=== PATIENT | male | born 1955 | race African-American/Black ===

== ENCOUNTER 2017-04-14 15:05 | Inpatient (IN) | payer MEDICARE ==
[~2017-04-14] VITALS: Ht 180.3 cm; Wt 87.5 kg
[2017-04-14] VITALS (37 sets, daily range): BP systolic 74–150; BP diastolic 40–91
--- NOTE | ~2017-04-14 | EC ---
PATIENT:ROSAMARIA HAGER DATE OF SERVICE: 04/14/17 SEX: M MEDICAL RECORD: [id number] DATE OF : [birth year] LOCATION:[facility] AGE OF PATIENT: 62 ADMISSION DATE: 04/14/17 REFERRING PHYSICIAN: INTERPRETING PHYSICIAN: CESAR DOLAN MD ECHOCARDIOGRAM REPORT ECHO CHARGES 4 ECHO COMPLETE CLINICAL DIAGNOSIS: L MCA HTN/CAD/DM HX OF CABG ECHOCARDIOGRAPHIC MEASUREMENTS (adult normal given) AC root (d.<3.7cm) 3.6 cm LV Septum d (<1.2 cm> 0.80 cm Valve Excursion 1.6 cm LV Septum (systole) 0.90 cm Left Atria (s.<4.0cm> 3.9 cm LVPW d(<1.2cm) 1.2 cm RV (d.<2.3cm) 3.3 cm LVPW (sytole) 1.6 cm LV diastole(<5.6CM) 6.4 cm MV E-F(>70mm/sec) cm LV systole 4.8 cm LVOT Diameter 1.5 cm MV exc.(>10mm) 1.6 cm Est.ejection fraction (50-75%) % Pericardial Effusion N DOPPLER: LVIT cm/sec A 59.0 cm/sec E 84.0 cm/sec LA cm/sec RVSP 48 mmHg LVOT 112 cm/sec AOP1/2T m/s Asc. Ao 113 cm/sec RVOT 89 cm/sec RA cm/sec PA 100 cm/sec AV Gradient Peak 5.09 mmHg AV Mean 302 mmHg AV Area 1.8 cm MV Gradient Peak 4.59 mmHg MV Mean 1.45 mmHg MV Area cm COMMENTS: Verifier Operator: 2 MARTIN ACKERMAN Talent Agent: 1 Dr. Dolan TAPE# PACS DATE OF SERVICE: 04/16/2017 Echocardiogram FINDINGS: 1. Left ventricular chamber size is mildly dilated. Left ventricular systolic function is mildly reduced, overall ejection fraction of 35% to 40%. 2. Left atrium, right atrium, and right ventricular chamber sizes are within normal limits. 3. Valvular structures have normal structure and motion. ECHOCARDIOGRAM REPORT [id number] ROSAMARIA HAGER 4. Doppler interrogation reveals mild mitral regurgitation, mild tricuspid regurgitation, no other valvular insufficiency or stenosis. Pulmonary systolic pressure is mildly elevated estimated at 48 mmHg. 5. No evidence of pericardial effusion or left ventricular thrombus. TRANSINT:[id number] Voice Confirmation ID: [id number] DOCUMENT ID: [id number] CESAR DOLAN MD CC: [id number] DICTATION DATE: 04/16/17 112 RETURNED GOODS REPAIRER: 04/16/[address] [facility] [address] [place] [address]
--- NOTE | ~2017-04-14 | OP ---
PATIENT NAME: ROSAMARIA HAGER MEDICAL RECORD: [id number] :51 LOCATION:D.M2 D.2138 ADMISSION DATE:04/14/17 SURGEON: CESAR VELAZQUEZ MD DATE OF OPERATION: 04/18/2017 PROCEDURES: 1. Left heart catheterization. 2. Selective coronary angiography. 3. Left ventriculogram. INDICATION: Elevated troponin. PROCEDURE IN DETAIL: After informed consent was obtained and after a detailed explanation of risks, benefits as well as alternative therapies, the patient elected to proceed with angiogram. The right femoral area was prepped and draped in normal sterile fashion. The right femoral artery was cannulated via modified Seldinger technique with placement of 6-[place]izen [place] sheath. All catheters exchanged through this sheath. FINDINGS: The left ventriculogram was performed in standard 30-degree TODD view, reveals severe global hypokinesis throughout all segments. Overall ejection fraction 15% to 20%. SELECTIVE CORONARY ANGIOGRAPHY: 1. Left main showed no significant angiographic disease. 2. Left anterior descending is totally occluded. 3. VARGAS to the LAD is widely patent. 4. Left circumflex has 80% to 90% stenosis in the mid vessel. 5. Vein graft to the OM1 and OM2 in a skipped fashion is widely patent. The circumflex is dominant. 6. Right coronary is small, nondominant diffusely diseased, and nongrafted. OVERALL IMPRESSION: Severe cardiomyopathy, wide patency of all grafts. Continue medical management of the cardiomyopathy. TRANSINT:[id number] Voice Confirmation ID: [id number] DOCUMENT ID: [id number] CESAR VELAZQUEZ MD CC: [id number] DICTATION DATE: 04/18/17 1054 PLANT ASSOCIATE: 04/18/17 1124 ADM IN [facility] [address] [place] [id number]
--- NOTE | ~2017-04-14 | HEMODYNAMI ---
PATIENT:ROSAMARIA HAGER MEDICAL RECORD: [id number] : 51 LOCATION:D. D.2138 ADMISSION DATE: 04/14/17 Generatedon:04/18/201710:54 Patient name: ROSAMARIA HAGER Patient #: [id number] SSN: DO B: 1955 Date of study: 04/18/2017 Page: Of Hemodynamic Procedure Report Patient Data Patient Demographics Procedure consent was obtained First Name: ROSAMARIA Gender: Male Last Name: ALLEY : 1955 Middle Initial: W Age: 62 year(s) Patient #: [id number] Race: Black Additional ID: [id number] Contact details [address]: [address] [place] [address] State: [place] City: [place] Zip code: [address] Admission Admission Data Admission Date: 04/14/2017 Admission Time: 15:05 Room #: D.2138 Weight (lbs.): 150 Weight (kg.): 68.04 Procedure Procedure Types Cath Procedure Diagnostic Procedure LHC LHC w/Coronaries w/Grafts Miscellaneous Procedures Moderate Sedation up to 15 minutes Procedure Description Procedure Date Procedure Date: 04/18/2017 Procedure Start Time: 10:43 Procedure End Time: 10:52 Procedure Staff Name Function Kasey Mckenzie RT Scrub Baltazar Dolan MD Performing Physician Camila Sultana RN Nurse Larissa Car RT Monitor Procedure Data Cath Procedure Fluoroscopy Diagnostic fluoroscopy Total fluoroscopy Time: 2.4 time: 2.4 min min Diagnostic fluoroscopy Total fluoroscopy dose: 435 dose: 435 mGy mGy Contrast Material Contrast Material Type Amount (ml) Isovue 300 80 Entry Location Entry Primary Successful Side Size Upsize Upsize Entry Closure Succes sful Closure Location (Fr) 1 (Fr) 2 (Fr) Remarks Device Remarks Femoral Right 5 Fr Exoseal artery Estimated blood loss: 10 ml Diagnostic catheters Device Type Used For End Catheter Placement Cordis 5Fr Pigtail Procedure Catheter (MP) Cordis 5Fr JL 4.0 Procedure Catheter (MP) Cordis 5Fr 3DRC Catheter Procedure (MP) Diagnostic Infinity 5Fr Procedure AR 2 MOD catheter Procedure Complications No complications Procedure Medications Medication Administration Route Dosage Oxygen NC 2 l/min Heparin Flush Bag added to field 2 bags (1000units/500ml NS) Lidocaine 2% added to field 20 Fentanyl I.V. 50 mcg Versed I.V. 1 mg Fentanyl I.V. 25 mcg Versed I.V. 0.5 mg Hemodynamics Rest Heart Rate: 106 (bpm) Snapshots Pre Cath Intra NCS Post Cath Vital Signs Time Heart Resp SPO2 NIBP Rhythm Pain Sedation Rate (ipm) (%) (mmHg) Status Level (bpm) 10:11:11 106 24 103/80(91) NSR 0 (11) 10(A) , No pain 10:15:11 101 22 95 102/79(93) NSR 0 (11) 10(A) , No pain 10:19:10 99 23 100 101/79(92) NSR 0 (11) 10(A) , No pain 10:23:10 95 24 99 103/77(92) NSR 0 (11) 10(A) , No pain 10:27:10 100 28 99 103/81(90) NSR 0 (11) 10(A) , No pain 10:31:09 98 25 99 102/80(89) NSR 0 (11) 10(A) , No pain 10:35:07 96 24 99 103/81(91) NSR 0 (11) 10(A) , No pain 10:39:07 100 26 98 100/81(89) NSR 0 (11) 9(A) , No pain 10:43:06 93 20 98 97/78(85) NSR 0 (11) 9(A) , No pain 10:47:06 92 20 97 97/74(81) NSR 0 (11) 9(A) , No pain 10:51:06 90 17 98 100/72(85) NSR 0 (11) 9(A) , No pain Medications Time Medication Route Dose Verified Delivered Reason Notes Effec tiveness by by 10:11:54 Oxygen NC 2 Camila Camila used for l/min Sultana Sultana architectural engineer RN 10:12:02 Heparin Flush added 2 Camila Camila used for Bag to bags Sultana Sultana procedure (1000units/500ml field RN RN NS) 10:12:11 Lidocaine 2% added 20ml Camila Camila used for to vial Sultana Sultana procedure field RN RN 10:38:59 Fentanyl I.V. 50 Camila Camila for mcg Sultana Sultana sedation RN RN 10:39:04 Versed I.V. 1 mg Camila Camila for Sultana Sultana sedation RN RN 10:42:55 Fentanyl I.V. 25 Camila Camila for mcg Sultana Sultana sedation RN RN 10:42:59 Versed I.V. 0.5 Camila Camila for mg Sultana Sultana sedation RN public works technician Log Time Note 9:59:31 Camila Sultana RN sent for patient. Start room use. 9:59:32 Time tracking: Regular hours 9:59:35 Plan of Care:Hemodynamics will remain stable., Cardiac rhythm will remain stable., Comfort level will be maintained., Respiratory function will remain adequate., Patient/ family verbilizes understanding of procedure., Procedure tolerated without complication., Recovers from procedure without complications.. 10:02:53 Patient received from PCU to CCL 2 Alert and oriented. Tansferred to table in Supine position. 10:02:54 Correct patient and procedure confirmed by team. 10:02:54 Warm blankets applied, and jessica hugger turned on for patient comfort. 10:02:56 Signed procedure consent form obtained from patient. 10:02:57 ECG and BP/O2 sat monitors applied to patient. 10:02:58 Full Disclosure recording started 10:10:13 Vital chart was started 10:10:57 Baseline sample Acquired. 10:11:54 Oxygen 2 l/min NC was administered by Camila Sultana RN; used for procedure; 10:12:02 Heparin Flush Bag (1000units/500ml NS) 2 bags added to field was administered by Camila Sultana RN; used for procedure; 10:12:11 Lidocaine 2% 20ml vial added to field was administered by Camila Sultana RN; used for procedure; 10:12:27 H&P Date Dictated: 04/15/2017 Within 30 days and on chart.. 10:12:29 Pre-procedure instructions explained to patient. 10:12:32 Family unavailable. 10:12:35 Patient NPO since Midnight. 10:13:13 Is the patient allergic to Iodine/contrast media? Yes. 10:13:16 Was the patient premedicated? Yes 10:13:26 Is patient on blood thinner?Yes 10:13:29 ACC The patient was administered the following blood thiners within the last 24 hours: ACCPlavix 10:13:31 Patient diabetic? Yes. 10:13:32 If diabetic: On Metformin? Yes 10:13:37 If on Metformin: Last Dose? 04/16/2017 10:13:43 Snore? Unknown 10:13:47 Sleep apnea? Unknown 10:13:59 Deviated septum? No 10:14:05 Dentures? No ? 10:14:09 Patient pain scale 0/10 ?. 10:14:18 IV patent on arrival in left hand with 0.9% NaCl at [facility]. 10:14:28 Lab results completed and on chart. 10:14:33 Right groin area was prepped with chlora-prep and draped in sterile fashion 10:14:34 Alarms reviewed by R. N. 10:14:35 Sharps counted by scrub and verified by R.N. 10:14:41 Physician paged 10:23:15 Zero performed for pressure channel P1 10:37:35 Physician arrived 10:37:47 --------ALL STOP TIME OUT------ 10:37:48 Final Timeout: patient, procedure, and site verified with staff and physician. All members of the team are in agreement. 10:37:52 Right groin site verified by team. 10:37:56 Physical assessment completed. ASA score P 2 - A patient with mild systemic disease as per Baltazar Dolan MD. 10:38:00 Sedation plan: IV Moderate Sedation Versed, Fentanyl 10:38:42 Use device set Radial Dx 10:38:43 Acist Syringe opened to sterile field. 10:38:44 Medline Cath Pack opened to sterile field. 10:38:45 Bag Decanter opened to sterile field. 10:38:54 St Bud 260cm J .035 wire opened to sterile field. 10:38:55 Acist Hand Control opened to sterile field. 10:38:56 Tegaderm 4 x 4 opened to sterile field. 10:38:56 Acist Manifold opened to sterile field. 10:38:59 Fentanyl 50 mcg I.V. was administered by Camila Sultana RN; for sedation; 10:39:03 Use device set Multipack Set 10:39:04 Versed 1 mg I.V. was administered by Camila Sultana RN; for sedation; 10:39:07 Diagnostic Infinity 5Fr Multipack catheter opened to sterile field. 10:39:16 Terumo 5Fr [place] Sheath opened to sterile field. 10:42:55 Fentanyl 25 mcg I.V. was administered by Camila Sultana RN; for sedation; 10:42:58 Procedure started. 10:42:59 Versed 0.5 mg I.V. was administered by Camila Sultana RN; for sedation; 10:43:11 Local anesthetic to right femoral artery with Lidocaine 2% by Baltazar Dolan MD.INITIAL ACCESS ONLY 10:43:20 A 5 Fr sheath was inserted into the Right Femoral artery 10:44:12 A Cordis 5Fr Pigtail Catheter (MP) was advanced over the wire and used for Procedure. 10:44:18 LV angiography performed. 10:44:22 LV gram done using TODD 10:44:37 EF : 15 % 10:44:41 Catheter removed. 10:45:10 A Cordis 5Fr JL 4.0 Catheter (MP) was advanced over the wire and used for Procedure. 10:45:14 LCA angiography performed. 10:45:53 Catheter removed. 10:46:04 A Cordis 5Fr 3DRC Catheter (MP) was advanced over the wire and used for Procedure. 10:46:43 VARGAS to LAD angiography performed. 10:46:53 RCA angiography performed. 10:47:06 Catheter removed. 10:47:45 A Diagnostic Infinity 5Fr AR 2 MOD catheter was advanced over the wire and used for Procedure. 10:47:54 SVG to Circ angiography performed. 10:49:13 Catheter removed. 10:49:19 Cordis 5Fr Exoseal opened to sterile field. 10:49:43 Sheath removed intact; hemostasis achieved with Exoseal to the Right Femoral artery. 10:49:58 Procedure ended.(Physican Out) 10:50:09 Fluoroscopy time 02.40 minutes. 10:50:15 Fluoroscopy dose: 435 mGy 10:50:15 Flurop Dose total: 435 10:50:19 Contrast amount:Isovue 300 80ml. 10:50:21 Sharps counted by scrub and verified by R.N. 10:50:22 Insertion/operative site no bleeding no hematoma. 10:50:35 Post-op/insertion site Right Femoral artery dressed using a 4 x 4 and Tegaderm. 10:50:39 Post right femoral artery:stable 10:50:43 Post Procedure Pulses reassessed and unchanged 10:50:49 Post-procedure physical assessment completed. ASA score P 3 - A patient with severe systemic disease as per Baltazar Dolan MD. 10:50:53 Estimated blood loss: 10 ml 10:50:56 Post procedure instruction explained to patient.Patient verbalizes understanding. 10:51:10 Procedure type changed to Cath procedure, Diagnostic procedure, LHC, LHC w/Coronaries w/Grafts, Miscellaneous Procedures, Moderate Sedation up to 15 minutes 10:51:11 Procedure and supply charges have been captured, reviewed, submitted and are correct. 10:51:52 Procedure Complication : No complications 10:51:55 Vital chart was stopped 10:51:56 See physician's report for complete and final results. 10:52:00 Report given to [facility]. 10:52:03 Patient transfered to [facility] with Bed. 10:52:06 Full Disclosure recording stopped 10:52:06 Procedure ended. 10:52:11 End room use (Document Last) 10:54:18 Patient Weight : 68.04 kg Device Usage Item Name Manufacture Quantity Catalog Hospital Part Current Minimal Lo t# / Number Charge Number Stock Stock Serial# Code Acist Acist 1 29799 [id number] 663552 800190 20 Syringe [employer] Inc Medline Cardinal 1 [id number] 853064 87924 259217 5 Cath Pack Health Bag Microtek 1 2001S 076496 19936 765095 [address] Bud 1 194195 096555 502895 836090 30 260cm J .035 wire Acist Hand Acist 1 67608 369420 623627 495242 5 Control Medical Systems Inc Acist Acist 1 30238 040443 173127 920830 5 Manifold Medical Systems Inc Tegaderm 4 3M 1 1626W 746603 978555 209421 5 x 4 Diagnostic Cardinal 1 [id number] 656804 94581 550318 30 Frazr Health 5Fr Multipack catheter Terumo 5Fr Terumo 1 [id number] 584772 387095 573567 40 [place] Sheath Cordis 5Fr Cardinal 1 568424 5 Pigtail Health Catheter (MP) Cordis 5Fr Cardinal 1 422578 5 JL 4.0 Health Catheter (MP) Cordis 5Fr Cardinal 1 568297 5 3DRC Health Catheter (MP) Diagnostic Cardinal 1 [id number] 819945 934642 056066 20 Infinity Health 5Fr AR 2 MOD catheter Cordis 5Fr Cardinal 1 EX500 063633 072760 501839 10 [facility] Angstro Signature Audit [place] Stage Time Signature Unsigned Intra-Procedure 04/18/2017 Larissa Car 10:54:54 AM RT(R) Signatures Monitor : Larissa Car Signature : RT Date : Time : [place] [address] [place] [address]
--- NOTE | ~2017-04-14 | CN ---
PATIENT NAME:ROSAMRAIA HAGER MEDICAL RECORD: [id number] : 51 LOCATION:SADAF.2307 ADMIT DATE: 04/14/17 ACCOUNT: [id number] CONSULTING PHYSICIAN: CESAR VELAZQUEZ MD REFERRING PHYSICIAN: ARIA STARKS MD DATE OF CONSULTATION: 04/15/2017 Cardiology Consult DIAGNOSES: 1. Non-Q-wave myocardial infarction. 2. Renal failure, acute. 3. Anemia. HISTORY OF PRESENT ILLNESS: This gentleman presents with acute renal failure, creatinine 11, potassium greater than 6. He underwent emergent dialysis. His troponin is positive, it increased to 5.0. He denies any chest pain or chest discomfort. He has no gross changes on his EKG. No cardiac history, although the patient is a poor historian and his systolic blood pressure is in the 90s, heart rate is 110-114. PHYSICAL EXAMINATION: GENERAL APPEARANCE: Well-nourished, well-developed, appears stated age. Level of distress, comfortable. PSYCHIATRIC: Mental status, alert, normal affect. Orientation, oriented to time, place and person. EYES: Lids and conjunctiva, noninjected. No discharge, no pallor. ENT: Lips, teeth, gums, normal dentition. Oropharynx, no cyanosis, no pallor. NECK: Carotid arteries, bilateral normal upstroke, no bruits, no thrills. JUGULAR VEINS: No jugular venous pressure or distention. CERVICAL LYMPH NODES: Nontender, nonenlarged. THYROID: Not enlarged. Nontender. No nodules. LUNGS: Respiratory effort, unlabored. CHEST: Normal curvature. No thoracic deformity. No chest wall tenderness. Percussion, resonant. Auscultation, clear. No wheezes, no rales, no rhonchi. CARDIOVASCULAR: Precordial exam, nondisplaced. No heaves or pericardial thrills. Rate and rhythm, regular. Heart sounds, normal S1, normal S2. No S3, no gallop, no rub. Systolic murmur, not heard. Diastolic murmur, not heard. EXTREMITIES: No cyanosis, no edema. Peripheral pulses, full and equal in all extremities, except as noted. No bruits appreciated. ABDOMEN: Soft, nondistended. Normal aorta. No bruit. Nontender. No masses. Liver, nontender, no hepatomegaly. Spleen, nontender, no splenomegaly. MUSCULOSKELETAL: No joint tenderness. No joint swelling. No erythema. NEUROLOGICAL: Normal gait, normal strength, normal tone. SKIN: Warm and dry. OVERALL IMPRESSION: Non-Q-wave myocardial infarction. We will start him on aspirin. We will try a very low dose beta geovanni to lower the heart rate. With the renal failure, would not proceed with coronary angiography at this time. Hopefully, medical management will stabilize him. Possible coronary angiography in the future if renal status stabilizes. TRANSINT:[id number] Voice Confirmation ID: [id number] DOCUMENT ID: [id number] CONSULT REPORT [id number] ROSAMARIA HAGER JEFFREY MD CC: [id number] DICTATION DATE: 04/15/17 1103 K 12 SCHOOL PRINCIPAL: 04/15/17 1456 ADM IN [place] [id number] [place] [id number]
--- NOTE | 2017-04-14 15:00 | NUR ---
REC'D TO ROOM 2307 VIA STRETCHER DIRECT ADMIT FROM [facility]. TRANSFERRED TO ICU BED BY [employer]. CONNECTED TO BEDSIDE MONITOR AND VS OBTAINED. NS INFUSING TO R IJ TLC AT KVO AND LEVOPHED INFUSING AT 15MCG/MIN. SEE FLOWSHEET FOR COMPLETE ASSESSMENT.
[~2017-04-14 15:05] MED LIST: ALDACTONE25 MG; ALDACTONE25 MG PO; CILOSTAZOL100 MG; CILOSTAZOL100 MG PO; COREG12.5 MG PO; COREG25 MG; COREG25 MG PO; FUROSEMIDE40 MG PO; GLIMEPIRIDE2 MG; GLIMEPIRIDE2 MG PO; K-TAB10 MEQ; K-TAB10 MEQ PO; MAG-OXIDE400 MG; MAG-OXIDE400 MG PO; POTASSIUM CHLORIDE E; VASOTEC10 MG; VASOTEC5 MG PO; ZOCOR40 MG; ZOCOR40 MG PO; ZYLOPRIM100 MG; ZYLOPRIM100 MG PO
[2017-04-14 15:42] LABS: BASOPHILS 0 % (0-2); EOSINOPHILS 0.3 % (0-7); HEMATOCRIT 30.4 % (42.0-54.0); HEMOGLOBIN 10.2 g/dL (13.5-17.5); IMMATURE GRANULOCYTES 0.1 % (0-5); LYMPHOCYTES 9.9 % (15-50); MCH 27.4 pg (26.0-34.0); MCHC 33.6 g/dL (31.0-37.0); MCV 81.7 fL (80.0-100.0); MEAN PLATELET VOLUME 9.6 fL (7.4-10.4); MONOCYTES 4.7 % (2-11); RBC 3.72 10x6/uL (4.20-6.10); RDW 14.9 % (11.5-14.5); WBC 7.3 10x3/uL (4.8-10.8)
[2017-04-14 15:47] LABS: PLATELET COUNT 194 10x3/uL (130-400)
[2017-04-14 15:49] LABS: INR 1.24 (0.85-1.17); PROTIME 15.5 SECONDS (11.6-15.0)
[2017-04-14 15:55] LABS: ALBUMIN 2.9 g/dL (3.4-5.0); ANION GAP 22.1 mmol/L (8-16); BILIRUBIN - DIRECT 0.08 mg/dL (0.00-0.30); BILIRUBIN - INDIRECT 0.18 mg/dL (0.00-1.00); BILIRUBIN - TOTAL 0.26 mg/dL (0.2-1.3); CALCIUM 8.3 mg/dL (8.5-10.1); CARBON DIOXIDE 13.3 mmol/L (21.0-32.0); CREATININE - SERUM 10.5 mg/dL (0.6-1.3); PROTEIN - SERUM 7.4 g/dL (6.4-8.2)
[2017-04-14 15:57] LABS: POTASSIUM - SERUM 7.4 mmol/L (3.5-5.1)
--- NOTE | 2017-04-14 17:30 | NUR ---
HANDOFF REPORT RECEIVED FROM COURTNEY FITZPATRICK. PT UNDERGOING HD AT THIS TIME PER DIALYSIS NURSE. WILL MONITOR CLOSELY DURING THERAPY
[2017-04-14 17:49] LABS: COMPLEMENT C4 27.8 mg/dL (17.4-52.2)
[2017-04-14 17:56] LABS: AMYLASE - SERUM 208 U/L (25-115); LIPASE 676 U/L (73-393)
[2017-04-14 18:33] LABS: ERYTHROCYTE SEDIMENTATION RATE 72 mm/hr (0-20)
--- NOTE | 2017-04-14 19:05 | NUR ---
SHIFT ASSESSMENT COMPLETE, SEE FLOWSHEET FOR DETIALS. PATIENT AWAKE AND ALERT TALKING WITH FAMILY AT BEDSIDE. CURRENTLY HAVING EMERGENCY DAILYSIS. VSS, IS HAVING PAC'S AND PVC'S. PATIENT HAS NOT HAD TO URINATE, HE STATES HE HASN'T IN DAYS. WILL MONITOR.
[2017-04-14 19:41] LABS: CKMB 5.4 U/L (0.0-3.6); CREATINE KINASE 81 UL (21-232)
[2017-04-14 19:42] LABS: TROPONIN-I 0.317 ng/mL (0.000-0.060)
--- NOTE | 2017-04-14 20:15 | NUR ---
PATIENT HAD 30 SECOND LONG RUN OF SVT WITH A RATE OF 148, DR STARKS MADE AWARE OF THAT AND PATIENT STILL HAVING PVS'S AND PAC'S. CARDIAC ENZYMES WERE DRAWN. CONSULTING CARDIOLOGY PER DR STARKS.
--- NOTE | 2017-04-14 20:31 | NUR ---
CARDIOLGY CONSULTED AT THIS TIME.
--- NOTE | 2017-04-14 23:00 | NUR ---
REASSESSMENT COMPLETE, PATIENT NOW IN NSR WITH SINUS TACH ON MONITOR OF 122. NOW PRODUCING GOOD URINE OUTPUT. WEANING LEVOPHED DOWN, VSS.
[2017-04-14 23:04] LABS: ANION GAP 14.4 mmol/L (8-16); CREATININE - SERUM 3.7 mg/dL (0.6-1.3); POTASSIUM - SERUM 3.4 mmol/L (3.5-5.1)
[2017-04-14 23:25] LABS: CREATININE - URINE 15.5 mg/dL (30-125)
[2017-04-14 23:32] LABS: APPEARANCE CLEAR (CLEAR); BILIRUBIN NEGATIVE (NEGATIVE); COLOR YELLOW (YELLOW); GLUCOSE 100 mg/dL (NEGATIVE); KETONE SMALL mg/dL (NEGATIVE); LEUKOCYTE ESTERASE NEGATIVE (NEGATIVE); NITRITE NEGATIVE (NEGATIVE); PROTEIN NEGATIVE (NEGATIVE); SPECIFIC GRAVITY 1.005 (1.005-1.020); UROBILINOGEN NORMAL (NORMAL)
[2017-04-14 23:39] LABS: BACTERIA FEW /hpf (NONE SEEN); EPITHELIAL CELLS RARE /hpf (0-5); RED CELLS - URINE 0-5 /hpf (0-5); WHITE CELLS - URINE OCC /hpf (0-5)
[2017-04-15] VITALS (50 sets, daily range): BP systolic 82–150; BP diastolic 46–86; Ht 180.3 cm; Wt 87.5 kg
--- NOTE | 2017-04-15 01:00 | NUR ---
RESTING WITH EYES CLOSED. VSS.
--- NOTE | 2017-04-15 03:00 | NUR ---
REASSESSMENT COMPLETE, NO CHAGNES FROM PREVIOUS. SEE FLOWSHEET FOR DETIALS. PLACED ON BEDPAN AT THIS TIME. SMALL AMOUND OF YELLOW DIARRHEA.
--- NOTE | 2017-04-15 05:03 | NUR ---
RESTING WITH EYES CLOSED. RR EVEN AND NONLABORED. VSS. WILL MONITOR.
[2017-04-15 05:04] LABS: BASOPHILS 0 % (0-2); EOSINOPHILS 0.5 % (0-7); HEMATOCRIT 26.5 % (42.0-54.0); HEMOGLOBIN 9.2 g/dL (13.5-17.5); IMMATURE GRANULOCYTES 0.3 % (0-5); LYMPHOCYTES 9.4 % (15-50); MCH 27.6 pg (26.0-34.0); MCHC 34.7 g/dL (31.0-37.0); MCV 79.6 fL (80.0-100.0); MEAN PLATELET VOLUME 9.4 fL (7.4-10.4); MONOCYTES 9.5 % (2-11); NEUTROPHILS 80.3 % (40-80); PLATELET COUNT 163 10x3/uL (130-400); RBC 3.33 10x6/uL (4.20-6.10); RDW 14.6 % (11.5-14.5); WBC 6.3 10x3/uL (4.8-10.8)
[2017-04-15 05:17] LABS: ANION GAP 10.5 mmol/L (8-16); CALCIUM 7.7 mg/dL (8.5-10.1); CREATININE - SERUM 3.8 mg/dL (0.6-1.3); POTASSIUM - SERUM 3.5 mmol/L (3.5-5.1)
--- NOTE | 2017-04-15 07:30 | NUR ---
AROUSES EASILY. ASSESSMENT COMPLETE.
[2017-04-15 08:19] LABS: % SATURATION 29 % (15-55); IRON 49 ug/dl (35-150); TOTAL IRON BIND CAPACITY 166 ug/dl (260-445); UNSAT IRON BIND CAPACITY 117 ug/dl (150-375)
[2017-04-15 08:34] LABS: AMYLASE - SERUM 123 U/L (25-115); FERRITIN 527 ng/mL (3-244); LIPASE 314 U/L (73-393)
[2017-04-15 08:40] LABS: HEMOGLOBIN A1C 8.9 % (4.8-6.0)
[2017-04-15 08:44] LABS: CKMB 11.7 U/L (0.0-3.6); CREATINE KINASE 114 UL (21-232)
[2017-04-15 08:48] LABS: TROPONIN-I 4.991 ng/mL (0.000-0.060)
--- NOTE | 2017-04-15 09:00 | NUR ---
RESTING WITHOUT COMPLAINTS. NO ACUTE DISTRESS NOTED.
--- NOTE | 2017-04-15 11:00 | NUR ---
NO CHANGES IN ASSESSMENT.
--- NOTE | 2017-04-15 14:00 | NUR ---
RESTING WITH EYES CLOSED. NO DISTRESS NOTED.
[2017-04-15 14:42] LABS: CKMB 9.1 U/L (0.0-3.6); CREATINE KINASE 97 UL (21-232)
[2017-04-15 14:47] LABS: TROPONIN-I 3.789 ng/mL (0.000-0.060)
--- NOTE | 2017-04-15 16:00 | NUR ---
FAMILY @ BEDSIDE. CONDITION UPDATE GIVEN. NO DISTRESS NOTED.
--- NOTE | 2017-04-15 18:00 | NUR ---
NO ACUTE CHANGES IN CONDITION.
--- NOTE | 2017-04-15 19:00 | NUR ---
REPORT RECIVED, SHIFT ASSESSMENT COMPLETE, PLEASE SEE FLOW SHEETS FOR DETAILS. A&O X4. DENIES PAIN/NEEDS ATT. RR EVEN AND UNLABORED, CLEAR. S1S2 AUSCULTATED WITH ST NOTED ON MONITOR. PPP. FLOEWR. BS ACTIVE X4. BED LOW AND LOCKED, CALL LIGHT IN REACH. WILL CPOC.
[2017-04-15 20:30] LABS: CKMB 7.4 U/L (0.0-3.6); CREATINE KINASE 91 UL (21-232)
[2017-04-15 20:32] LABS: TROPONIN-I 3.168 ng/mL (0.000-0.060)
--- NOTE | 2017-04-15 21:00 | NUR ---
VISITORS AT BEDSIDE, DENIES PAIN/NEEDS ATT. BED LOW AND LOCKED, CALL LIGHT IN REACH. WILL CPOC.
--- NOTE | 2017-04-15 22:58 | NUR ---
REASSESSMENT COMPLETE, PLEASE SEE FLOW SHEETS FOR DETAILS. DENIES PAIN/NEEDS ATT. BED LOW AND LOCKED, CALL LIGHT IN REACH. VSS, WILL CPOC.
[2017-04-16] VITALS (20 sets, daily range): BP systolic 107–187; BP diastolic 63–111
--- NOTE | 2017-04-16 01:00 | NUR ---
PT GOT UP TO BEDSIDE CAMODE WITH NO ASSISTANCE NEEDED. FULL LINEN CHANGE PROVIDED. BATHED HIMSELF AND HAD SMALL SOFT BM. ALSO APPROX 200ML IN URINE OUT. RETURNED TO BED WITH NO HELP, BED LOW AND LOCKED, CALL LIGHT IN REACH. VSS ATT. WILL CPOC.
--- NOTE | 2017-04-16 02:59 | NUR ---
REASSESSMENT COMPLETE, PLEASE SEE FLOW SHEETS FOR DETAILS. DENIES PAIN/NEEDS ATT. VSS, BED LOW AND LOCKED, CALL LIGHT IN REACH. WILL CPOC.
[2017-04-16 04:28] LABS: BASOPHILS 0.1 % (0-2); EOSINOPHILS 1.9 % (0-7); HEMATOCRIT 26.7 % (42.0-54.0); IMMATURE GRANULOCYTES 0.3 % (0-5); LYMPHOCYTES 24.3 % (15-50); MCH 27.4 pg (26.0-34.0); MCHC 33.7 g/dL (31.0-37.0); MCV 81.4 fL (80.0-100.0); MEAN PLATELET VOLUME 8.9 fL (7.4-10.4); MONOCYTES 11.5 % (2-11); NEUTROPHILS 61.9 % (40-80); PLATELET COUNT 143 10x3/uL (130-400); RBC 3.28 10x6/uL (4.20-6.10); RDW 14.6 % (11.5-14.5); WBC 6.8 10x3/uL (4.8-10.8)
[2017-04-16 04:34] LABS: ANION GAP 11.4 mmol/L (8-16); CALCIUM 7.1 mg/dL (8.5-10.1); CARBON DIOXIDE 29.9 mmol/L (21.0-32.0); POTASSIUM - SERUM 3.3 mmol/L (3.5-5.1)
[2017-04-16 04:38] LABS: CREATININE - SERUM 1.7 mg/dL (0.6-1.3)
--- NOTE | 2017-04-16 05:00 | NUR ---
PT RESTING, VSS, BED LOW AND LOCKED, CALL LIGHT IN REACH. WILL CPOC.
--- NOTE | 2017-04-16 11:08 | NUR ---
TRIALYSIS CATH PULLED RIGHT NECK. PRESSURE HELD NO SWELLING OR BLEEDING FROM SITE. DRESSING APPLIED. PATIENT TOLERATED WELL.
--- NOTE | 2017-04-16 16:33 | NUR ---
IV LEAKING, NO SWELLING OR REDNESS. RESTARTED IN LEFT FOREARM WITH 22 GAUGE X 2 ATTEMPTES. PATIENT TOLERATED WELL. INFUSING WITH D51/2NS WITH 20 MEQ KCL AT 75 ML HOUR.
--- NOTE | 2017-04-16 19:00 | NUR ---
REPORT RECEIVED. SHIFT ASSESSMENT COMPLETED PER FLOW SHEET. PT LAYING IN BED, AWAKE AND ALERT. S1S2 PRESENT. PERIPHERAL PULSES PALP. BS ACTIVE X4. NO PROBLEMS URINATING OR VOIDING. ABLE TO FOLLOW COMMANDS WHEN ASKED TO MOVE EXTREMITIES. ABLE TO TURN INDEPENDENTLY. L FOREARM PIV INFUSING D5-1/2NS+20 KCL AT 75 MLS/HR. SEE FLOW SHEEET FOR COMPLETE ASSESSMENT. DENIES NEEDS AT THIS TIME. CALL LIGHT WITHIN REACH. BED IN LOWEST POSITION. WILL CONTINUE TO MONITOR.
--- NOTE | 2017-04-16 20:53 | NUR ---
PT LAYING IN BED WATCHING TV. MED ADMINISTERED PER EMAR. DENIES NEEDS AT THIS TIME. WILL CONTINUE TO MONITOR. CALL LIGHT WITHIN REACH.
--- NOTE | 2017-04-16 21:30 | NUR ---
PT TRANSFERED TO MED 2. REPORT GIVEN TO RN.
--- NOTE | 2017-04-16 21:47 | NUR ---
RECEIVED FROM ICU, BED IS LOW, SRX2, TELEMTRY PLACED, IV-LFA-D5 08/15 20K @ 75, PT DENIES ANY NEEDS, CALL LIGHT IN REACH, WILL CONTINUE TO MONITOR
[2017-04-17] VITALS: BP 125/83
--- NOTE | 2017-04-17 00:08 | NUR ---
CALL LIGHT IN REACH. WILL CONTINUE WITH PLAN OF CARE.
[2017-04-17 04:00] VITALS: BP 102/62
--- NOTE | 2017-04-17 04:09 | NUR ---
PT SLEEPING, BED IS LOW, SRX2, CALL LIGHT IN REACH, WILL CONTINUE PLAN OF CARE
[2017-04-17 06:32] LABS: ANION GAP 12.1 mmol/L (8-16); CARBON DIOXIDE 27.3 mmol/L (21.0-32.0); CREATININE - SERUM 1.4 mg/dL (0.6-1.3); POTASSIUM - SERUM 3.4 mmol/L (3.5-5.1)
[2017-04-17 06:44] LABS: CALCIUM 6.9 mg/dL (8.5-10.1)
[2017-04-17 07:14] LABS: BASOPHILS 0.2 % (0-2); EOSINOPHILS 3.2 % (0-7); HEMATOCRIT 27.4 % (42.0-54.0); HEMOGLOBIN 9.2 g/dL (13.5-17.5); IMMATURE GRANULOCYTES 0.3 % (0-5); LYMPHOCYTES 28.2 % (15-50); MCH 27.6 pg (26.0-34.0); MCHC 33.6 g/dL (31.0-37.0); MCV 82.3 fL (80.0-100.0); MEAN PLATELET VOLUME 9.6 fL (7.4-10.4); NEUTROPHILS 58.1 % (40-80); PLATELET COUNT 147 10x3/uL (130-400); RBC 3.33 10x6/uL (4.20-6.10); RDW 14.7 % (11.5-14.5); WBC 6.2 10x3/uL (4.8-10.8)
--- NOTE | 2017-04-17 07:25 | NUR ---
ASSESSMENT COMPLETED. TELEMERTY SHOWS SR. LEFT FA SL WITH D5 1/2 WITH KCL 20 AT 75. TELEMERTY SHOWS SR. PT IS UP AB LUIZ. DENIES ANY NEEDS. CALL LIGHT IN REACH WITH SR UP
--- NOTE | 2017-04-17 10:07 | NUR ---
AM ROUNDING DONE WITH PATIENT RESTING WITH EYES CLOSED LAYING ON RIGHT SIDE, HOB UP AT 20 DEGREES. RESP ARE EVEN AND NON LABORED. WILL CONTINUE TO MONITOR.
[2017-04-17 10:34] VITALS: BP 102/59
[2017-04-17 12:00] VITALS: BP 108/74
[2017-04-17 16:34] VITALS: BP 104/71
--- NOTE | 2017-04-17 18:36 | NUR ---
LYING QUIETLY. DENIES ANY NEEDS.TELEMERTY SHOWS SR. VISITORS AT BEDSIDE. NO CHANGES THIS 12 HOURS
[2017-04-17 19:00] VITALS: BP 113/68
--- NOTE | 2017-04-17 19:30 | NUR ---
RECEIVED REPORT, WILL ASSUME CARE OF PT, PT SITTING ON SIDE OD BED VISITING WITH DAUGHTER, DENIES ANY NEEDS,EXPLAINED WILL BE NPO AFTER MIDNIGHT PER ORDER, FOR CATH IN AM, BED IS LOW, SRX2, CALL LIGHT IN REACH, WILL CONTINUE PLAN OF CARE
[2017-04-18] VITALS: BP 102/70
--- NOTE | 2017-04-18 00:10 | NUR ---
CLINICAL APPEALS REVIEWER AT BED SIDE TO OBTAIN VITALS.
--- NOTE | 2017-04-18 01:23 | NUR ---
PT SLEEPING, BED IS LOW, SRX2, CALL LIGHT IN REACH, WILL CONTINUE PLAN OF CARE
--- NOTE | 2017-04-18 03:04 | NUR ---
PT RESTING IN BED WITH NO DISTRESS. RESPS EVEN/NONLABORED. MONITOR AND CPOC. CALL LIGHT IN REACH. BED LOW.
--- NOTE | 2017-04-18 03:05 | NUR ---
PT RESTING IN BED WITH NO DISTRESS. RESPS EVEN/NONLABORED. MONITOR AND CPOC. CALL LIGHT IN REACH. BED LOW.
[2017-04-18 04:00] VITALS: BP 100/68
--- NOTE | 2017-04-18 07:00 | NUR ---
RECEIVED REPORT. ASSUMED CARE OF PATIENT. CALL LIGHT WITHIN REACH. RESP EVEN AND UNLABORED. RESTING IN BED WITH EYES OPEN. DENIES NEEDS AT THIS TIME. DENIES PAIN, CHEST PAIN OR SOB. NO DISTRESS.
[2017-04-18 08:23] VITALS: BP 101/67
[2017-04-18 09:08] LABS: ANTI-GLOMERULAR BASMENT MEMBRN 3 units (0-20)
--- NOTE | 2017-04-18 09:53 | NUR ---
PREOP MEDS ADMINISTERED AT THIS TIME FOR HEART CATH. NO DISTRESS. CALL LIGHT WITHIN REACH.
[2017-04-18 09:57] LABS: BASOPHILS 0 % (0-2); EOSINOPHILS 0.2 % (0-7); HEMATOCRIT 28.6 % (42.0-54.0); HEMOGLOBIN 9.6 g/dL (13.5-17.5); IMMATURE GRANULOCYTES 0.6 % (0-5); LYMPHOCYTES 24.6 % (15-50); MCH 27.5 pg (26.0-34.0); MCHC 33.6 g/dL (31.0-37.0); MCV 81.9 fL (80.0-100.0); MEAN PLATELET VOLUME 9.3 fL (7.4-10.4); MONOCYTES 8.6 % (2-11); PLATELET COUNT 149 10x3/uL (130-400); RBC 3.49 10x6/uL (4.20-6.10); RDW 14.7 % (11.5-14.5); WBC 6.5 10x3/uL (4.8-10.8)
--- NOTE | 2017-04-18 10:02 | NUR ---
PATIENT LEFT UNIT VIA BED AT THIS TIME FOR HEART CATH. NO DISTRESS UPON LEAVING UNIT.
[2017-04-18 10:10] LABS: CARBON DIOXIDE 24.7 mmol/L (21.0-32.0); CREATININE - SERUM 1.5 mg/dL (0.6-1.3)
[2017-04-18 10:11] LABS: ANION GAP 14.4 mmol/L (8-16); POTASSIUM - SERUM 4.1 mmol/L (3.5-5.1)
[2017-04-18 10:12] LABS: CALCIUM 6.5 mg/dL (8.5-10.1)
[2017-04-18 11:11] LABS: FOLATE (FOLIC ACID) - SERUM 10.4 ng/mL (>3.0)
--- NOTE | 2017-04-18 11:16 | NUR ---
RECEIVED PATIENT BACK FROM [facility]ODUCTION ASSOCI[facility] AT THIS TIME. BP 100/65. PERIPHERAL PULSES PATENT. RIGHT GROIN FREE FROM S/S HEMATOMA, DRESSING CLEAN, DRY, AND INTACT. NO DISTRESS. PATIENT IS CONVERSING ON HIS CELLPHONE AT THIS TIME. IV FLUIDS INFUSING ORDERED. NO DISTRESS. CALL LIGHT WITHIN REACH. TELEMETRY REAPPLIED.
--- NOTE | 2017-04-18 11:22 | NUR ---
EFFIE WITH [facility] IN PHARMACY, STILL AWAITING FOR [facility] TO BE BROUGHT TO UNIT.
--- NOTE | 2017-04-18 12:06 | NUR ---
[facility] CONTINUES TO BE UNAVAILABLE FROM PHARMACY.
[2017-04-18 12:11] LABS: ANA REFLEX - DIRECT Negative (Negative)
--- NOTE | 2017-04-18 12:58 | NUR ---
RIGHT GROIN WITHOUT S/S HEMATOMA, DRESSING REMAINS CLEAN, DRY AND INTACT. PERIPHERAL PULSES PATENT. BP 98/56. IV INFUSING ORDERED. NO DISTRESS.
--- NOTE | 2017-04-18 14:22 | NUR ---
Nutrition Follow Up: Pt reported that his appetite is improving. He said that he felt constipated before but feels this has resolved. RD discussed benefit of changing diet to diabetic to aid in glucose control. Pt was in agreement with this. Pt is eating 57% meal avg on a regular diet. Wt stable. +BM 04/16/17. Labs reviewed. Meds noted including Prednisone. Will change diet to diabetic. RD following.
[2017-04-18 16:10] VITALS: BP 107/69
[2017-04-18 16:11] LABS: SPE - A/G RATIO 0.8 (0.7-1.7); SPE - ALBUMIN 3.1 g/dL (2.9-4.4); SPE - ALPHA-1 GLOBULIN 0.3 g/dL (0.0-0.4); SPE - ALPHA-2 GLOBULIN 1.2 g/dL (0.4-1.0); SPE - BETA GLOBULIN 1.2 g/dL (0.7-1.3); SPE - GAMMA GLOBULIN 1.1 g/dL (0.4-1.8); SPE - M-SPIKE Not Observed g/dL (Not Observed); SPE - TOTAL PROTEIN 6.9 g/dL (6.0-8.5)
--- NOTE | 2017-04-18 18:24 | NUR ---
NO DISTRESS. RESTING WELL IN BED. DENIES NEEDS. CALL LIGHT WITHIN REACH.
[2017-04-18 19:00] VITALS: BP 106/65
--- NOTE | 2017-04-18 19:30 | NUR ---
RECEIVED REPORT, WILL ASSUME CARE OF PT, PT DENIES ANY NEEDS, BED IS LOW, SRX2, CALL LIGHT IN REACH, PT REFUSING SCD,WILL CONTINUE PLAN OF CARE
[2017-04-19] VITALS: BP 116/73
[2017-04-19 03:09] LABS: HEPATITIS C ANTIBODY 0.4 (0.0-0.9)
--- NOTE | 2017-04-19 04:01 | NUR ---
ASSESSMENT COMPLETE, SEE FLOWSHEET, PT SLEEPING, BED IS LOW, SRX2, CALL LIGHT IN REACH, WILL CONTINUE PLAN OF CARE
[2017-04-19 05:31] LABS: BASOPHILS 0 % (0-2); EOSINOPHILS 0.2 % (0-7); HEMOGLOBIN 9.3 g/dL (13.5-17.5); IMMATURE GRANULOCYTES 0.4 % (0-5); LYMPHOCYTES 22.6 % (15-50); MCH 27.4 pg (26.0-34.0); MCHC 33.2 g/dL (31.0-37.0); MCV 82.6 fL (80.0-100.0); MEAN PLATELET VOLUME 10.2 fL (7.4-10.4); MONOCYTES 7.2 % (2-11); NEUTROPHILS 69.6 % (40-80); PLATELET COUNT 160 10x3/uL (130-400); RBC 3.39 10x6/uL (4.20-6.10); RDW 14.7 % (11.5-14.5)
--- NOTE | 2017-04-19 05:36 | NUR ---
PT RESTING IN BED WITH NO DISTRESS. RESPS EVEN/NONLABORED. CALL LIGHT IN REACH. CPOC.
[2017-04-19 05:47] LABS: WBC 8.4 10x3/uL (4.8-10.8)
[2017-04-19 06:29] LABS: ANION GAP 15.3 mmol/L (8-16); CARBON DIOXIDE 24.9 mmol/L (21.0-32.0); CREATININE - SERUM 1.6 mg/dL (0.6-1.3); POTASSIUM - SERUM 4.2 mmol/L (3.5-5.1)
[2017-04-19 06:30] LABS: CALCIUM 6.9 mg/dL (8.5-10.1)
[2017-04-19 07:50] VITALS: BP 107/81
--- NOTE | 2017-04-19 08:05 | NUR ---
AM ROUNDS COMPLETED. INTRODUCED MYSELF TO PT PRIMARY RN FOR TODAYS SHIFT. SHIFT ASSESSMENT COMPLETED. PT SITTING UP ON EDGE OF BED EATING BREAKFAST. PT STATES HE SLEPT WELL AND IS FEELING BETTER AND HOPES TO BE DISCHARGED TODAY. PT DENIES ANY CURRENT PAIN OR NEEDS AT THIS TIME. CL IN REACH, BED IN LOWEST, SIDE RAILS X2. WILL CPOC.
[2017-04-19] MEDS ORDERED: COREG6.25 MG PO (09:54)
[2017-04-19] MEDS ORDERED: ASPIRIN81 MG PO (09:55)
--- NOTE | 2017-04-19 10:46 | NUR ---
Patient Name: ROSAMARIA HAGER Admission Status: Urgent Accout number: [id number] Admission Date: 04-14-2017 : 1955 Admission Diagnosis: Attending: ARIA STARKS Current LOS: 5 Anticipated DC Date: 04-19-2017 Planned Disposition: Home Primary Insurance: [facility] Discharge Planning Comments: * Is the patient Alert and Oriented? Yes 0 * How many steps to enter\exit or inside your home? 1 0 * PCP DR. SNYDER IN [place] 0 * Pharmacy [facility] IN [place] 0 * Preadmission Environment Home Alone 0 * ADLs Independent 0 * Equipment [facility] 0 * Other Equipment HOME OXYGEN ONLY PROVIDED BY [facility] 0 * List name and contact numbers for known caregivers / representatives who currently or will assist patient after discharge: CINDY HAGER, DTR, 0 * Community resources currently utilized None 0 * Please name any agencies selected above. NONE 0 * Additional services required to return to the preadmission environment? No 0 * Can the patient safely return to the preadmission environment? Yes 0 * Has this patient been hospitalized within the prior 30 days at any hospital? No 0 CM MET WITH PT IN ROOM TO DISCUSS DISCHARGE PLANNING AND NEEDS. PT REPORTS LIVING AT HOME INDEPENDENTLY AND ALONE. PT REPORTS HIS 11 YEAR OLD GRANDSON SPENDS WEEKENDS WITH PT AT HIS HOME. PT HAS HOME OXYGEN FROM [facility] AND A CANE. PT USES A CANE NEEDED. PT HAS NO OUTSIDE SERVICES ASSISTING IN THE HOME. CM DISCUSSED AVAILABILITY OF HOME HEALTH, REHAB SERVICES AND MEDICAL EQUIPMENT. PT DENIES DISCHARGE NEEDS, REPORTS HIS DAUGHTER IS ON THE WAY TO PICK HIM UP FOR DISCHARGE HOME TODAY. IMPORTANT MESSAGE FROM [employer] PROVIDED AND EXPLAINED Information Technology Associate: Bernard Lazaro
[2017-04-19 11:19] VITALS: BP 100/80
--- NOTE | 2017-04-19 11:23 | NUR ---
PT EXCITED TO BE DISCHARGED. DISCHARGE PAPERS BEING WORKED UP. PT CALLED HIS DAUGHTER FOR TRANSPORTATION. D/C PTS L.LUÍS PIV WITH CATHETER TIP FULLY INTACT. PT COLLECTING BELONGINGS AND AWAITING HIS PAPERS AND RIDE.
--- NOTE | 2017-04-19 12:17 | NUR ---
DAUGHTER HERE TO NURSE RESEARCHER PT. DISCHARGE PAPERS SIGNED AND PT VERBALIZED UNDERSTANDING. NO FURTHER NEEDS. PT READY TO LEAVE.
--- NOTE | 2017-04-19 13:37 | DS ---
PATIENT:ROSAMARIA HAGER :[birth year] MEDICAL RECORD: [id number] DISCHARGE SUMMARY ADMISSION DATE: 04/14/17 DISCHARGE DATE: 04/19/17 HOSPITAL COURSE: This is a 62-year-old gentleman that was admitted by Dr. Hickman with acute kidney injury and hyperkalemia. He required dialysis. Dr. Hickman had simplified his medications and had held his allopurinol and his Aldactone. Allopurinol can rarely cause renal insufficiency and of course Aldactone [id number] his potassium. Cardiology was consulted. He had a left heart catheter with no significant disease. His Coreg has been decreased to 6.25 mg b.i.d., Aspirin 81 a day. His calcium was borderline, probably due to his renal insufficiency and he is to take 1000 mg of Tums 3 times a day and will have followup and have his BMP and calcium checked as well. Continue Lasix, which is 40 mg p.r.n. edema, simvastatin 40 mg at night for his hyperlipidemia and resume his glimepiride, or Amaryl 2 mg one a day. He is stable on discharge. Vital signs are stable. His blood pressure is 102/62 with a heart rate 66-72. Normocephalic and atraumatic. Clear nares. Clear throat. No JVD or thyromegaly. Chest is regular rhythm, S1 and S2. His site where his Trialysis catheter was placed is stable with no sign of infection or bleeding. No lower extremity edema. Follow up with Dr. Carpenter. We will likely have him see our nurse practitioner in the [place] area as well. Continue with his cardiac low sodium diet and to return to the hospital for any problems. Stable on discharge. More than 30 minutes was spent with the dictation and writing out his discharge instructions. TRANSINT:[id number] Voice Confirmation ID: [id number] DOCUMENT ID: [id number] PUSHPA RECIO MD at 1337 CC: PUSHPA CARPENTER MD [id number] DICTATION DATE: 04/19/17 1007 GLASS FORMING ENGINEER: 04/19/17 1130 DIS IN 04/19/17 [id number] [place] [id number]
[2017-04-19 14:19] LABS: ANCA - ANTIMYELOPEROXIDASE <9.0 U/mL (0.0-9.0); ANCA - ANTIPROTEINASE 3 <3.5 U/mL (0.0-3.5); ANCA - ATYPICAL <1:20 titer (Neg:<1:20); ANCA - CYTOPLASMIC <1:20 titer (Neg:<1:20); ANCA - PERINUCLEAR <1:20 titer (Neg:<1:20)
[2017-04-19 15:21] LABS: UPE RAND - ALBUMIN 55.3 % (()); UPE RAND - ALPHA 1 GLOBULIN 3.5 % (()); UPE RAND - ALPHA 2 GLOBULIN 6.2 % (()); UPE RAND - BETA GLOBULIN 16.4 % (()); UPE RAND - GAMMA GLOBULIN 18.7 % (())
== END 2017-04-19 12:17 | disposition home or self-care (01) | DRG 280 ==
LOC: D.ICU 15:05 → D.M2 15:05
PROVIDERS: Internal Medicine Interventional Cardiology; ADMIT Internal Medicine Nephrology
PROC: 5A1D00Z (ICD-10-PCS; 2017-04-14)
PROC: B2151ZZ Fluoroscopy of Left Heart using Low Osmolar Contrast (ICD-10-PCS; 2017-04-18)
PROC: 4A023N7 Measurement of Cardiac Sampling and Pressure, Left Heart, Percutaneous Approach (ICD-10-PCS; 2017-04-18)
PROC: B2111ZZ Fluoroscopy of Multiple Coronary Arteries using Low Osmolar Contrast (ICD-10-PCS; principal; 2017-04-18 09:30)
DX: I21.4 Non-ST elevation (NSTEMI) myocardial infarction (principal); K85.90 Acute pancreatitis without necrosis or infection, unspecified; N17.9 Acute kidney failure, unspecified; I42.9 Cardiomyopathy, unspecified; E87.2 Acidosis; E87.5 Hyperkalemia; T50.995A Adverse effect of other drugs, medicaments and biological substances, initial encounter; I11.0 Hypertensive heart disease with heart failure; I50.9 Heart failure, unspecified; I25.10 Atherosclerotic heart disease of native coronary artery without angina pectoris; Z95.1 Presence of aortocoronary bypass graft; E87.6 Hypokalemia; I95.9 Hypotension, unspecified; D64.9 Anemia, unspecified